=== PATIENT | female | born 2005 | race Caucasian/White ===

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

== ENCOUNTER 2023-01-18 06:17 | Day surgery (SDC) | payer BC, OTHER ==
[~2023-01-18 06:17] MED LIST: DEXAMETHASONE SOD PHOSPHATE 4 MG/ML 1 ML VIAL IV ONE; LACTATED RINGERS 1,000 ML IV SCH; LIDOCAINE 1% (10MG/ML) FOR IV START INTRADERMA PRN; ONDANSETRON 4 MG/2 ML VIAL IVP ONE; SCOPOLAMINE 1 MG/72 HR PATCH TRANSDERM ONE; metroNIDAZOLE-NS PMX 500 MG in SALINE 1 100ML.BAG IVPB PRN
[2023-01-18 06:48] VITALS: TEMP 96.8
[2023-01-18] MEDS ORDERED: HYDROmorphone 0.5 MG/0.5 ML SYRINGE IVP PRN (07:00)
[2023-01-18] MEDS ORDERED: SUCCINYLCHOLINE CHLORIDE 200 MG/10 ML VIAL IV ONE (07:25)
[2023-01-18] MEDS ORDERED: fentaNYL (PF) 50 MCG/ML 2 ML AMP ONE (07:25)
[2023-01-18] MEDS ORDERED: DEXAMETHASONE SOD PHOSPHATE 4 MG/ML 1 ML VIAL ONE (07:25)
[2023-01-18] MEDS ORDERED: MIDAZOLAM 2 MG/2 ML VIAL ONE (07:25)
[2023-01-18] MEDS ORDERED: PROPOFOL 10 MG/ML 20 ML VIAL IV ONE (07:25)
[2023-01-18] MEDS ORDERED: LIDOCAINE 2% INJ 20 MG/ML (2 ML VIAL) ONE (07:25)
[2023-01-18] MEDS ORDERED: LIDOCAINE 2%-EPI 1:100,000 20 ML VIAL SQ ONE ×2 (07:27→08:06)
[2023-01-18 08:34] VITALS: RESP 16
[2023-01-18 09:44] VITALS: BP 115/61; PULSE 99
--- NOTE | 2023-01-18 19:48 | OP ---
OPERATIVE REPORT DATE OF SERVICE : 01/18/2023 PREOPERATIVE DIAGNOSES: 1. Ectopic teeth. 2. Pericoronitis. POSTOPERATIVE DIAGNOSES: 1. Ectopic teeth. 2. Pericoronitis. PROCEDURE: Surgical extraction of teeth #1, #16, #32, and #7. ANESTHESIA: General via oral endotracheal intubation. ESTIMATED BLOOD LOSS: 5 mL. FLUIDS: Crystalloid. DRAINS: None. COMPLICATIONS: None. SPECIMENS: None. INDICATIONS FOR PROCEDURE: The patient is a 17-year-old female, who is referred by her on air director for the evaluation and extraction of teeth #1, #16, #32, and #7. 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 This procedure will be performed in the OR setting as an outpatient. The risks, benefits, and alternatives of the procedure were reviewed with the mother at length and all of her questions answered to her satisfaction. DESCRIPTION OF PROCEDURE: The patient was taken to the operating room, placed on the operating table in the supine position. Next, the patient was induced via the IV route and was intubated orally, and a general plane of anesthesia was then maintained throughout the operative course once the tube was secured. The surgeon then approached the operative field, and a throat pack was placed notifying both Nursing and Anesthesia. Next, 10 mL of 2% lidocaine with 1:100,000 parts epinephrine was infiltrated into the maxillary posterior regions, and then a right inferior alveolar nerve block, lingual block, and buccal block was administered. Infiltration was also administered into the anterior maxilla in the area of tooth #7. Attention was then directed to the lower right quadrant where a full-thickness mucoperiosteal envelope flap with a release on the distal aspect was developed. The bone was removed surrounding the impacted tooth #32, and an elevator technique was used to deliver the tooth. The wound was irrigated thoroughly and packed with Gelfoam, and a 3-0 chromic gut suture was used to reapproximate the flap. Attention was then directed to the upper right wisdom tooth where a similar flap technique and extraction technique was performed. The tooth was delivered without complications. Attention was then directed to the anterior maxilla where tooth #7 was removed utilizing an elevator and forceps technique following the development of a small flap and bone removal. Finally, attention was directed to the upper left posterior region where tooth #16 was removed utilizing a similar technique as #1. The wounds were packed with Gelfoam. Hemostasis was observed. The throat pack was removed notifying both Nursing and Anesthesia. MMODL / IJN: [id number] /
== END 2023-01-18 10:14 | disposition home or self-care (01) ==
LOC: OR 06:17 → EEVIPCON 07:30 → OR 10:14
PROVIDERS: ATTEND Dentist Oral and Maxillofacial Surgery
DX: K00.1 Supernumerary teeth (principal); K05.30 Chronic periodontitis, unspecified; Q90.9 Down syndrome, unspecified; Q38.2 Macroglossia; R62.50 Unspecified lack of expected normal physiological development in childhood; M41.9 Scoliosis, unspecified; E03.9 Hypothyroidism, unspecified; Z79.890 Hormone replacement therapy; Z79.899 Other long term (current) drug therapy; Z98.890 Other specified postprocedural states; Z88.0 Allergy status to penicillin
CPT/HCPCS: 81025; 41899; J2250; J0330; J1100; J0690; J2405; J3010; J2704; J2001

== ENCOUNTER → 2023-03-21 | Outpatient (CLI) | payer BC, OTHER ==
[2023-03-21 22:31] LABS: Prolactin 12.7 ng/mL (2.800-29.200)
== END | disposition home or self-care (01) ==
LOC: LABWHC1 11:56
PROVIDERS: ATTEND Internal Medicine Endocrinology, Diabetes & Metabolism
DX: E03.8 Other specified hypothyroidism (principal)
CPT/HCPCS: 36415; 82024; 82533; 82627; 83498; 84146; 84443

== ENCOUNTER → 2023-09-10 | Outpatient (CLI) | payer BC ==
[2023-09-10 11:26] LABS: Estradiol 42.8 pg/mL
[2023-09-10 11:54] LABS: Follicle Stimulating Hormone 6.3 mIU/mL; Luteinizing Hormone 9.8 mIU/mL
== END | disposition home or self-care (01) ==
LOC: LABWHC1 07:19
PROVIDERS: ATTEND Internal Medicine Endocrinology, Diabetes & Metabolism
DX: N92.6 Irregular menstruation, unspecified (principal); E03.8 Other specified hypothyroidism
CPT/HCPCS: 36415; 82670; 83001; 83002; 84443

== ENCOUNTER → 2024-03-06 | Outpatient (CLI) | payer BC ==
[2024-03-07 03:19] LABS: Basophils # (A) 0.13 X 10*3/uL (0.00-0.10); Basophils % (A) 1.2 %; Eosinophils # (A) 0.17 X 10*3/uL (0.04-0.35); Eosinophils % (A) 1.5 %; HCT 45.1 % (37.2-46.3); Lymphocytes # (A) 2.95 X 10*3/uL (0.90-5.00); Lymphocytes % (A) 26.3 %; MCH 31.3 pg (27.0-32.0); MCHC 33.3 g/dL (32.0-37.0); MCV 94.2 FL (80.0-97.0); Mean Platelet Volume 9.6 FL (9.5-12.2); Monocytes # (A) 0.66 X 10*3/uL (0.20-1.00); Monocytes % (A) 5.9 %; NRBC Per 100 WBC 0 X 10*3/uL (0.00-0.01); Neutrophils # (A) 7.24 X 10*3/uL (1.80-7.70); Neutrophils % (A) 64.6 %; Platelet Count 382 X 10*3/uL (140-440); RBC 4.79 X 10*6/uL (4.10-5.20); RDW 13.4 % (11.5-14.5); WBC 11.21 X 10*3/uL (4.50-10.00)
[2024-03-07 03:47] LABS: Rheumatoid Factor, Qnt <15 IU/mL (0-15); T4, Free (Free Thyroxine) 1.72 ng/dL (0.83-1.43)
[2024-03-07 04:42] LABS: Erythrocyte Sedimentation Rate 15 mm/Hr (0-20)
== END | disposition home or self-care (01) ==
LOC: LABWHC1 16:14
PROVIDERS: ATTEND Family Medicine
DX: E55.9 Vitamin D deficiency, unspecified (principal); R94.6 Abnormal results of thyroid function studies; R52 Pain, unspecified
CPT/HCPCS: 36415; 82306; 84439; 84443; 85025; 85652; 86038; 86140; 86431

== ENCOUNTER → 2024-09-15 | Outpatient (CLI) | payer MEDICARE | END | disposition home or self-care (01) | LOC: LABWHC1 08:05 | PROVIDERS: ATTEND Internal Medicine Endocrinology, Diabetes & Metabolism | DX: E03.8 Other specified hypothyroidism (principal) | CPT/HCPCS: 36415; 84443 ==

== ENCOUNTER → 2024-12-24 | Outpatient (CLI) | payer MEDICARE ==
[2024-12-24 16:07] LABS: Chol/HDL Ratio 3.72 Ratio; LDL Cholesterol,Calculated 93.3 mg/dL (0.0-131.0)
== END | disposition home or self-care (01) ==
LOC: LABWHC1 08:20
PROVIDERS: ATTEND Family Medicine
DX: Z13.220 Encounter for screening for lipoid disorders (principal); E03.8 Other specified hypothyroidism
CPT/HCPCS: 36415; 80061; 84443; 86141